=== PATIENT | male | born 1975 | race Hispanic/Latino ===

== ENCOUNTER 2020-04-02 21:40 | Emergency (ER) | payer OTHER ==
[2020-04-02] MEDS ORDERED: TETANUS/DIPHTHERIA TOXOID [ADULT] 0.5 ML VIAL IM ONE (21:41)
[2020-04-02] MEDS ORDERED: TETANUS IMMUNE GLOBULIN 250 UNIT SYRINGE IM ONE (22:23)
[2020-04-02] MEDS ORDERED: LIDOCAINE HCL 1% 20 ML VIAL ONE (23:00)
[2020-04-03] MEDS ORDERED: ACETAMINOPHEN EXTRA STRENGTH 500 MG TABLET ONE (00:21)
== END 2020-04-03 01:04 | disposition home or self-care (01) ==
LOC: EDH 21:40
DX: S01.81XA Laceration without foreign body of other part of head, initial encounter (principal); S80.02XA Contusion of left knee, initial encounter; X58.XXXA Exposure to other specified factors, initial encounter; Y93.89 Activity, other specified; Y92.89 Other specified places as the place of occurrence of the external cause; Y99.8 Other external cause status
CPT/HCPCS: 12011; 70450; 73562; 90471; 90714; J1670

== ENCOUNTER 2020-04-11 15:21 | Emergency (ER) | payer OTHER | END 2020-04-11 15:56 | disposition home or self-care (01) | LOC: EDH 15:21 | DX: S01.111D Laceration without foreign body of right eyelid and periocular area, subsequent encounter (principal); Z87.891 Personal history of nicotine dependence | CPT/HCPCS: 99281 ==